=== PATIENT | male | born 1980 | race Caucasian/White ===

== ENCOUNTER 2022-10-26 13:45 | Inpatient (IN) | payer MEDICAID ==
[2022-10-26] VITALS (7 sets, daily range): BP systolic 136–155; BP diastolic 99; PULSE 90–113; RESP 18–24; TEMP 97.9–98.4; O2SAT 99–100
[~2022-10-26] VITALS: Ht 185.4 cm; Wt 76.7 kg
[2022-10-26] MEDS ORDERED: NACL 0.9% 1,000 ML IV ONE ×3 (13:50→17:30)
[2022-10-26] MEDS ORDERED: ONDANSETRON 4 MG/2 ML VIAL IVP ONE (13:50)
[2022-10-26 14:11] LABS: BASOPHILS % (AUTO) 0.6 % (0.0-2.0); EOSINOPHILS # (AUTO) 0.1 K/uL (0-0.4); EOSINOPHILS % (AUTO) 0.8 % (0.0-4.0); HEMATOCRIT 49.7 % (36-52); HEMOGLOBIN 16.6 g/dL (12.0-18.0); LYMPHOCYTES # (AUTO) 0.6 K/uL (2.0-11.5); LYMPHOCYTES % (AUTO) 7.2 % (20.5-51.1); MEAN CORPUSCULAR HEMOGLOBIN 29 pg (27-31); MEAN CORPUSCULAR HGB CONC 33 g/dL (33-37); MEAN CORPUSCULAR VOLUME 86.1 fL (80-94); MONOCYTES % (AUTO) 12.8 % (1.7-9.3); NEUTROPHILS % (AUTO) 78.6 % (42.2-75.2); PLATELET COUNT (AUTO) 195 K/uL (140-450); RED BLOOD CELL COUNT(AUTO) 5.77 MIL/uL (4.20-6.10); RED CELL DISTRIBUTION WIDTH 15.3 % (11.6-13.7); WHITE BLOOD COUNT (AUTO) 7.6 K/uL (4.8-10.8)
[2022-10-26 14:27] LABS: ALANINE AMINOTRANSFERASE 149 U/L (12-78); ALBUMIN 4.2 g/dL (3.4-5.0); ALKALINE PHOSPHATASE 102 U/L (50-136); ANION GAP 19.3 (8-16); ASPARTATE AMINOTRANSFERASE 55 U/L (15-37); CALCIUM 9.1 mg/dL (8.5-10.1); CARBON DIOXIDE 23.8 mmol/L (21-32); CHLORIDE 95 mmol/L (98-107); CREATINE KINASE, TOTAL 988 U/L (39-308); CREATININE 1.7 mg/dL (0.6-1.3); GFR ARICAN-AMERICAN 57 mL/min (>90); GFR NON ARICAN-AMERICAN 47 mL/min (>90); GLUCOSE 147 mg/dL (74-106); MAGNESIUM 2.3 mg/dL (1.8-2.4); PHOSPHORUS 2.4 mg/dL (2.5-4.9); POTASSIUM 3.1 mmol/L (3.5-5.1); SODIUM SERUM 135 mmol/L (136-145); TOTAL BILIRUBIN 1.1 mg/dL (0.0-1.0); TOTAL PROTEIN, SERUM 8.6 g/dL (6.4-8.2); UREA NITROGEN, BLOOD 36 mg/dL (7-18)
[2022-10-26 14:28] LABS: BLOOD GAS HCO3 21.7 mmol/L (22-26); BLOOD GAS PCO2 24.6 mmHg (35-45); BLOOD GAS PH 7.563 (7.35-7.45); BLOOD GAS PO2 107.7 mmHg (75-100)
[2022-10-26 14:29] LABS: BLOOD GAS BASE EXCESS 1.5 mmol/L (-2.0-2.0)
[2022-10-26 14:30] LABS: BLOOD GAS O2 SAT% 98.6 % (92.0-98.5)
[2022-10-26 15:14] LABS: ALCOHOL, BLOOD < 3 mg/dL (<10)
[2022-10-26] MEDS ORDERED: POTASSIUM CHLORIDE 10 MEQ TABER PO ONE (17:40)
[2022-10-26] MEDS ORDERED: TRAZ-466 PO (17:52)
[2022-10-26] MEDS ORDERED: GABA600T12 PO (17:52)
[2022-10-26 18:02] LABS: APPEARANCE,URINE CLEAR (CLEAR); BILIRUBIN,URINE NEGATIVE (NEGATIVE); BLOOD, URINE 1+ (NEGATIVE); COLOR,URINE YELLOW (YELLOW); LEUKOCYTE ESTERASE ,URINE NEGATIVE (NEGATIVE); NITRITE, URINE NEGATIVE (NEGATIVE); PROTEIN,URINE 2+ (NEGATIVE); UGLUCOSE NEGATIVE (NEGATIVE); UROBILINOGEN,URINE 0.2 EU/dL (0.2 - 1)
[2022-10-26 18:08] LABS: BACTERIA,URINE FEW /HPF (None Seen); MUCUS,URINE 2+ /LPF (None Seen); RBC,URINE 0-5 /HPF (0-5); SQUAMOUS EPITHELIAL CELL,UR 4-10 (MOD) /LPF (0-3 (FEW)); TRICHOMONAS,URINE None Seen /HPF (None Seen); YEAST,URINE None Seen /HPF (None Seen)
[2022-10-26 18:12] LABS: AMPHETAMINE, URINE NEGATIVE ng/ml (NEG <=1000); BARBITURATE, URINE NEGATIVE ng/ml (NEG <=200); BENZODIAZEPINE, URINE NEGATIVE ng/mL (NEG <=200); CANNABINOID, URINE NEGATIVE ng/mL (NEG <=50); COCAINE, URINE NEGATIVE ng/mL (NEG <=300); OPIATE, URINE NEGATIVE ng/mL (NEG <=2000); PHENCYCLIDINE SCREEN,URINE NEGATIVE ng/mL (NEG <=25)
[2022-10-26] MEDS: NACL 0.9% 1,000 ML IV SCH (22:41)
[2022-10-27] VITALS (9 sets, daily range): BP systolic 127–152; BP diastolic 69–95; PULSE 69–90; RESP 18–20; TEMP 97.5–98.3; O2SAT 97–100
[2022-10-27 06:14] LABS: BASOPHILS % (AUTO) 0.8 % (0.0-2.0); EOSINOPHILS # (AUTO) 0.2 K/uL (0-0.4); EOSINOPHILS % (AUTO) 3.6 % (0.0-4.0); HEMATOCRIT 39.3 % (36-52); HEMOGLOBIN 13.1 g/dL (12.0-18.0); LYMPHOCYTES # (AUTO) 0.6 K/uL (2.0-11.5); LYMPHOCYTES % (AUTO) 12.5 % (20.5-51.1); MEAN CORPUSCULAR HEMOGLOBIN 29 pg (27-31); MEAN CORPUSCULAR HGB CONC 33 g/dL (33-37); MONOCYTES # (AUTO) 0.8 K/uL (0.8-1.0); MONOCYTES % (AUTO) 16.5 % (1.7-9.3); NEUTROPHILS # (AUTO) 3.2 K/uL (1.8-7.7); NEUTROPHILS % (AUTO) 66.6 % (42.2-75.2); PLATELET COUNT (AUTO) 142 K/uL (140-450); RED BLOOD CELL COUNT(AUTO) 4.57 MIL/uL (4.20-6.10); WHITE BLOOD COUNT (AUTO) 4.8 K/uL (4.8-10.8)
[2022-10-27 06:40] LABS: ANION GAP 13.6 (8-16); CALCIUM 7.9 mg/dL (8.5-10.1); CARBON DIOXIDE 22.5 mmol/L (21-32); CREATININE 1.4 mg/dL (0.6-1.3); POTASSIUM 3.1 mmol/L (3.5-5.1); TOTAL BILIRUBIN 0.8 mg/dL (0.0-1.0); TOTAL PROTEIN, SERUM 6.5 g/dL (6.4-8.2)
[2022-10-27] MEDS ORDERED: ONDANSETRON 4 MG/2 ML VIAL IVP PRN (10:35)
[2022-10-27] MEDS ORDERED: HYDROcodone/APAP 7.5/325 MG 1 TAB PO PRN (10:35)
[2022-10-27] MEDS ORDERED: ACETAMINOPHEN 325 MG TAB PO PRN (10:35)
[2022-10-27 10:50] LABS: CREATINE KINASE, TOTAL 622 U/L (39-308)
[2022-10-27 11:05] LABS: INR 1.06 (0.8-1.2); PARTIAL THROMBOPLASTIN TIME 27.3 secs (22-35.6); PROTHROMBIN TIME 11.1 secs (10.8-13.4)
[2022-10-27] MEDS: POTASSIUM CHLORIDE 10 MEQ TABER PO PRN (11:14)
[2022-10-27 11:16] LABS: ANION GAP 11.5 (8-16); CALCIUM 7.9 mg/dL (8.5-10.1); CARBON DIOXIDE 24.7 mmol/L (21-32); CREATININE 1.2 mg/dL (0.6-1.3); POTASSIUM 3.2 mmol/L (3.5-5.1)
[2022-10-27] MEDS: NACL 0.9% 1,000 ML IV SCH ×2 (11:16→18:18)
[2022-10-27 11:19] LABS: CHOL/HDL RATIO 2.4 (1-4.5); CHOLESTEROL 120 mg/dL (<200); FREE T4 (FREE THYROXINE) 1.21 ng/dL (0.76-1.46); HDL CHOLESTEROL 49 mg/dL (40-60); LDL (CALC) 57 mg/dL (60-100); PHOSPHORUS 1.4 mg/dL (2.5-4.9); THYROID STIMULATING HORMONE 0.78 uIU/mL (0.34-3.74); TRIGLYCERIDES 70 mg/dL (30-150)
[2022-10-27 11:25] LABS: AMYLASE 371 U/L (25-115); LIPASE 280 U/L (73-393); MAGNESIUM 1.6 mg/dL (1.8-2.4)
[2022-10-27] MEDS: MAG SULF 2000 MG/WATER PREMIX 50 ML IV PRN (13:26)
[2022-10-27] MEDS: DOCUSATE SODIUM 100 MG GELCAP PO SCH (20:13)
[2022-10-27] MEDS: HYDROCORTISONE 1% CRM 30 GM TUBE TP SCH (20:24)
[2022-10-27] MEDS ORDERED: ZOLPIDEM 10 MG TAB PO ONE (22:40)
[2022-10-28] VITALS: BP 125/67; PULSE 81; RESP 20; TEMP 98.5; O2SAT 99
[2022-10-28] MEDS: NACL 0.9% 1,000 ML IV SCH ×4 (00:28→20:49)
[2022-10-28 04:00] VITALS: BP 131/74; PULSE 80; PULSE 93; RESP 20; TEMP 99.8; O2SAT 99
[2022-10-28 06:20] LABS: ANION GAP 10.3 (8-16); CALCIUM 7.6 mg/dL (8.5-10.1); CREATININE 1.1 mg/dL (0.6-1.3); POTASSIUM 3.3 mmol/L (3.5-5.1)
[2022-10-28 06:22] LABS: BASOPHILS % (AUTO) 0.6 % (0.0-2.0); EOSINOPHILS # (AUTO) 0.1 K/uL (0-0.4); HEMATOCRIT 35.5 % (36-52); HEMOGLOBIN 11.8 g/dL (12.0-18.0); LYMPHOCYTES % (AUTO) 23.6 % (20.5-51.1); MEAN CORPUSCULAR HEMOGLOBIN 29 pg (27-31); MEAN CORPUSCULAR HGB CONC 33 g/dL (33-37); MEAN CORPUSCULAR VOLUME 86.7 fL (80-94); MONOCYTES # (AUTO) 0.7 K/uL (0.8-1.0); MONOCYTES % (AUTO) 15.7 % (1.7-9.3); NEUTROPHILS # (AUTO) 2.5 K/uL (1.8-7.7); NEUTROPHILS % (AUTO) 58.1 % (42.2-75.2); PLATELET COUNT (AUTO) 123 K/uL (140-450); RED CELL DISTRIBUTION WIDTH 15.2 % (11.6-13.7); WHITE BLOOD COUNT (AUTO) 4.3 K/uL (4.8-10.8)
[2022-10-28 06:35] LABS: MAGNESIUM 1.4 mg/dL (1.8-2.4); PHOSPHORUS 1.4 mg/dL (2.5-4.9)
[2022-10-28] MEDS: POTASSIUM CHLORIDE 10 MEQ TABER PO PRN (07:07)
[2022-10-28] MEDS: MAG SULF 2000 MG/WATER PREMIX 50 ML IV PRN (07:09)
[2022-10-28 08:00] VITALS: BP 148/96; PULSE 68; PULSE 77; PULSE 89; RESP 18; TEMP 97.9; O2SAT 100
[2022-10-28] MEDS: DOCUSATE SODIUM 100 MG GELCAP PO SCH ×2 (08:45→20:49)
[2022-10-28] MEDS: HYDROCORTISONE 1% CRM 30 GM TUBE TP SCH ×2 (08:50→20:49)
[2022-10-28] MEDS: PANTOPRAZOLE 40 MG INJ VIAL IVP SCH (08:52)
[2022-10-28] MEDS: NYSTATIN CRE 100 MU/GM 15 GM TUBE TP SCH ×2 (13:06→17:02)
[2022-10-28 16:00] VITALS: BP 158/100; PULSE 68; RESP 18; TEMP 97.1; O2SAT 100
[2022-10-28] MEDS ORDERED: NACL 0.9% 1,000 ML IV SCH (18:20)
[2022-10-28 20:00] VITALS: PULSE 65; RESP 18; O2SAT 99
[2022-10-29] MEDS: NACL 0.9% 1,000 ML IV SCH (03:29)
[2022-10-29 04:17] VITALS: BP 128/83; PULSE 67; RESP 18; TEMP 98.2; O2SAT 98
[2022-10-29 04:57] LABS: BASOPHILS % (AUTO) 0.5 % (0.0-2.0); EOSINOPHILS # (AUTO) 0.1 K/uL (0-0.4); EOSINOPHILS % (AUTO) 1.4 % (0.0-4.0); HEMATOCRIT 34.1 % (36-52); HEMOGLOBIN 11.2 g/dL (12.0-18.0); LYMPHOCYTES % (AUTO) 26.4 % (20.5-51.1); MEAN CORPUSCULAR HEMOGLOBIN 29 pg (27-31); MEAN CORPUSCULAR HGB CONC 33 g/dL (33-37); MEAN CORPUSCULAR VOLUME 86.6 fL (80-94); MONOCYTES # (AUTO) 0.5 K/uL (0.8-1.0); MONOCYTES % (AUTO) 14.2 % (1.7-9.3); NEUTROPHILS # (AUTO) 2.2 K/uL (1.8-7.7); NEUTROPHILS % (AUTO) 57.5 % (42.2-75.2); PLATELET COUNT (AUTO) 127 K/uL (140-450); RED BLOOD CELL COUNT(AUTO) 3.94 MIL/uL (4.20-6.10); RED CELL DISTRIBUTION WIDTH 15.1 % (11.6-13.7); WHITE BLOOD COUNT (AUTO) 3.8 K/uL (4.8-10.8)
[2022-10-29 05:08] LABS: ANION GAP 9.6 (8-16); CALCIUM 7.4 mg/dL (8.5-10.1); CARBON DIOXIDE 25.9 mmol/L (21-32); CREATININE 0.9 mg/dL (0.6-1.3); POTASSIUM 3.5 mmol/L (3.5-5.1)
[2022-10-29 05:16] LABS: MAGNESIUM 1.2 mg/dL (1.8-2.4); PHOSPHORUS 1.3 mg/dL (2.5-4.9)
[2022-10-29] MEDS: MAG SULF 2000 MG/WATER PREMIX 50 ML IV PRN (06:41)
[2022-10-29 08:00] VITALS: BP 133/85; PULSE 69; RESP 20; TEMP 97.9; O2SAT 99
[2022-10-29] MEDS: PANTOPRAZOLE 40 MG INJ VIAL IVP SCH (08:49)
[2022-10-29] MEDS: NYSTATIN CRE 100 MU/GM 15 GM TUBE TP SCH (08:56)
[2022-10-29] MEDS: DOCUSATE SODIUM 100 MG GELCAP PO SCH (08:56)
[2022-10-29] MEDS: HYDROCORTISONE 1% CRM 30 GM TUBE TP SCH (08:56)
== END 2022-10-29 11:27 | disposition home or self-care (01) | DRG 816 ==
LOC: MED 13:45 → MTU 18:20
DX: T59.891A Toxic effect of other specified gases, fumes and vapors, accidental (unintentional), initial encounter (principal); N17.0 Acute kidney failure with tubular necrosis; R65.11 Systemic inflammatory response syndrome (SIRS) of non-infectious origin with acute organ dysfunction; G92.8 Other toxic encephalopathy; E44.0 Moderate protein-calorie malnutrition; M62.82 Rhabdomyolysis; E83.39 Other disorders of phosphorus metabolism; E87.3 Alkalosis; E87.1 Hypo-osmolality and hyponatremia; L30.9 Dermatitis, unspecified; E87.6 Hypokalemia; K70.9 Alcoholic liver disease, unspecified; Z68.22 Body mass index [BMI] 22.0-22.9, adult; F41.9 Anxiety disorder, unspecified; R74.01 Elevation of levels of liver transaminase levels; F31.9 Bipolar disorder, unspecified; E86.0 Dehydration; F17.210 Nicotine dependence, cigarettes, uncomplicated; Z59.00 Homelessness unspecified; Y92.89 Other specified places as the place of occurrence of the external cause
CPT/HCPCS: 36415; 36600; 80048; 80053; 80305; 81001; 82140; 82150; 82550; 82553; 82803; 83036; 83605; 83690; 83735; 83880; 84100; 84439; 84443; 84484; 85025; 85610; 85730; 87040; 87081; 87086; 96361; 96374; 99285; C9113; G0482; J1644; J2405; J3475